=== PATIENT | male | born 1995 | race African-American/Black ===

== ENCOUNTER 2016-07-01 14:32 | Emergency (ER) | payer OTHER ==
--- NOTE | 2016-07-01 15:08 | ERRECORD ---
[facility] EMERGENCY RECORD HPI COUGH (15:01 JLOY) CHIEF COMPLAINT: Patient presents for evaluation of cough, productive of green sputum, Patient presents for evaluation of 1 week of cough and subjective chills. Aches all over. HISTORIAN: History provided by patient. LOCATION: Symptoms are generalized. TIME COURSE: Gradual onset of symptoms, There has been no change in the patient's symptoms over time, are constant. ASSOCIATED WITH: Associated with chest pain, intermittent, Associated with chills, No associated diarrhea, Associated with fever, subjective, Associated with nausea, intermittent, Associated with upper respiratory infection, Vomited x2 this am. EXACERBATED BY: Patient's condition exacerbated by nothing. RELIEVED BY: Patient's condition relieved by nothing. ROS (15:02 JLOY) CONSTITUTIONAL: Historian reports chills, reports fever. EYES: Historian denies eye pain, denies eye redness, denies eye discharge. ENT: Historian reports rhinorrhea, denies sore throat. CARDIOVASCULAR: substernal chest pain when coughing. RESPIRATORY: Historian reports cough, denies shortness of breath, reports sputum. green. GI: Historian denies abdominal pain, denies diarrhea, reports nausea, reports vomiting. GENITOURINARY MALE: Historian denies dysuria, denies hematuria. MUSCULOSKELETAL: Historian reports arthralgias, reports myalgias. NEUROLOGIC: Historian reports dizziness, reports headache. PAST MEDICAL HISTORY MEDICAL HISTORY: Flu vaccine not up to date, Tetanus immunization up to date, No past medical history. (14:44 LHAL) MALE SURGICAL HISTORY: Patient has no surgical history. (14:44 LHAL) PSYCHIATRIC HISTORY: Psychiatric history includes previous inpatient psychiatric admissions, Facility: [facility], Psychiatric history includes, bipolar disorder, Psychiatric history includes, ADHD , insomnia. (14:44 LHAL) SOCIAL HISTORY: Patient drinks socially, every week, Patient currently uses drugs, abuses marijuana, Patient has no smoking history. (14:44 LHAL) NOTES: Nursing records reviewed, Agree with nursing records. (15:03 JLOY) KNOWN ALLERGIES &a-1R&a+25V*p+0X*[id number]*c202B*c15G*c2P*p-0X&a-25V&a+1R Name: Kenroy Kate : 1995 M20 MedRec: [id number] AcctNum: [id number] Prepared: Adriane Jul 01, 2016 15:06 by Interface Page 1 of 3 pMD [facility] EMERGENCY RECORD ciprofloxacin (Unconfirmed) ciprofloxacin HCl (Unconfirmed) No Known Drug Allergies (Unconfirmed) Penicillins sulfamethoxazole (Unconfirmed) trimethoprim (Unconfirmed) CURRENT MEDICATIONS (14:43 LHAL) None VITAL SIGNS (14:38 LHAL) VITAL SIGNS: BP: 129/85 (Sitting), Pulse: 83 (Regular), Resp: 16 (Non-Labored), Temp: 100.0 (Oral), Pain: 5 (Constant), O2 sat: 97 on Room Air, Time: 07/01/2016 14:38. PHYSICAL EXAM (15:03 JLOY) CONSTITUTIONAL: Vital Signs Reviewed, Patient appears non toxic, Patient alert and oriented to person, place and time. EYES: Eye exam included findings of eyelids normal to inspection, Pupils equally round and reactive to light, Conjunctiva normal. ENT: Pharynx exam normal, Uvula exam normal, Tonsil exam normal, Mouth exam normal, mucous membranes moist. NECK: Neck exam included findings of normal range of motion, Trachea midline, no cervical adenopathy. RESPIRATORY CHEST: Respiratory exam included findings of no respiratory distress, Breath sounds clear, No wheezing, No rales, No rhonchi, Chest exam included findings of chest movement symmetrical. CARDIOVASCULAR: Cardiovascular exam included findings of heart rate regular rate and rhythm, Heart sounds normal. ABDOMEN MALE: Abdominal exam included findings of abdomen nontender, Bowel sounds normal. NEURO: [place] coma scale 15, Neuro exam findings include patient oriented to person, place and time, Speech normal. SKIN: Skin exam included findings of skin warm, dry, and normal in color, no rash. PSYCHIATRIC: Normal affect. PROBLEM LIST No recorded problems DIAGNOSIS (14:54 JLOY) FINAL: PRIMARY: Viral infection. PRESCRIPTION No recorded prescriptions DISPOSITION PATIENT: Disposition Type: Discharge, Disposition: *Discharge Home. (14:54 JLOY) Patient left the department. (15:01 LHAL) &a-1R&a+25V*p+0X*[id number]*c202B*c15G*c2P*p-0X&a-25V&a+1R Name: Kenroy Kate : 1995 M20 MedRec: [id number] AcctNum: [id number] Prepared: TueJul 01, 2016 15:06 by Interface Page 2 of 3 pMD [facility] EMERGENCY RECORD Pulido: TAWANNA=MD Black, Pradeep LHAL=DEWAYNE Purvis, Barbara &a-1R&a+25V*p+0X*[id number]*c202B*c15G*c2P*p-0X&a-25V&a+1R Name: Kenroy Kate : 1995 M20 MedRec: [id number] AcctNum: [id number] Prepared: TueJul 01, 2016 15:06 by Interface Page 3 of 3 pMD MTDD
--- NOTE | 2016-07-01 15:15 | PICIS ---
[facility] EMERGENCY RECORD TRIAGE (TueJul 01, 2016 14:43 LHAL) TRIAGE NOTES: COUGH, CONGESTION, FEVER X ONE WEEK. (TueJul 01, 2016 14:43 LHAL) PATIENT: NAME: Kenroy Kate, AGE: 20, GENDER: male, : Tue1995, TIME OF GREET: TueJul 01, 2016 14:33, PREFERRED LANGUAGE: Moh[place], ETHNICITY: Not or , ECODE BILLING MAP: [facility], SSN: [id number], Zip Code: [address], KG WEIGHT: 68.04, PHONE: , , , PERSON ID: [id number], PCP: NALLELY MONTALVO. (TueJul 01, 2016 14:43 LHAL) COMPLAINT: COUGH. (TueJul 01, 2016 14:43 LHAL) ADMISSION: URGENCY: 5 [employer], ADMISSION SOURCE: Home, TRANSPORT: CAR, BED: ER -05. (TueJul 01, 2016 14:43 LHAL) ASSESSMENT: Assessment: COUGH COLD CONGESTION X ONE WEEK, LOW GRADE FEVER, Symptoms began ONE WEEK AGO. (14:44 LHAL) PAIN: Patient complains of pain described as, aching, burning, on a scale 0-10 patient rates pain as 5, Location CHEST HURTS WHEN HE COUGHS, Pain is intermittent, No aggravating factors. (14:44 LHAL) IMMUNIZATIONS: Flu vaccine up to date, Tetanus immunization up to date, Pneumococcal vaccine up to date, Notes: KIRAN PARMAR MOTRIN AT 1230P TODAY. (14:44 LHAL) SIRS SCORING: Heart Rate 55-109 (0), Temp range 96.8-101.1 (0), respiratory rate 12-24 (0), Mental Status altered: no (0), Yes, Infection or Suspected Infection. (14:44 LHAL) TRIAGE SCREENING: Patient denies suicidal ideation, Patient denies presence of domestic violence. (14:44 LHAL) PROVIDERS: TRIAGE NURSE: Barbara Purvis RN. (Adriane Jul 01, 2016 14:43 LHAL) VITAL SIGNS: BP 129/85, (Sitting), Pulse 83, (Regular), Resp 16, (Non-Labored), Temp 100.0, (Oral), Pain 5, (Constant), O2 Sat 97, on Room Air, Time 07/01/2016 14:38. (14:38 LHAL) PREVIOUS VISIT ALLERGIES: ciprofloxacin HCl, Penicillins, sulfamethoxazole, trimethoprim. (TueJul 01, 2016 14:43 LHAL) ciprofloxacin HCl, Penicillins, sulfamethoxazole, trimethoprim. (14:44 LHAL) KNOWN ALLERGIES ciprofloxacin (Unconfirmed) ciprofloxacin HCl (Unconfirmed) No Known Drug Allergies (Unconfirmed) Penicillins sulfamethoxazole (Unconfirmed) trimethoprim (Unconfirmed) CURRENT MEDICATIONS (14:43 LHAL) None VITAL SIGNS (14:38 LHAL) VITAL SIGNS: BP: 129/85 (Sitting), Pulse: 83 (Regular), Resp: 16 &a-1R&a+25V*p+0X*[id number]*c202B*c15G*c2P*p-0X&a-25V&a+1R Name: Kenroy Kate : 1995 M20 MedRec: [id number] AcctNum: [id number] Prepared: TueJul 01, 2016 15:13 by Interface Page 1 of 5 pMD [facility] EMERGENCY RECORD (Non-Labored), Temp: 100.0 (Oral), Pain: 5 (Constant), O2 sat: 97 on Room Air, Time: 07/01/2016 14:38. NURSING ASSESSMENT: FOCUSED (14:43 LHAL) CONSTITUTIONAL: Patient arrives ambulatory, Gait steady, History obtained from patient, Patient appears comfortable, Patient cooperative, Patient alert, Oriented to person, place and time, Skin warm, Skin dry, Skin normal in color, Mucous membranes pink, Mucous membranes moist, Patient is well-groomed, Patient complains of COUGH X ONE WEEK. PAIN: aching pain, burning pain, CHEST HURTS WHEN HE COUGHS, Onset of pain ONE WEEK AGO, intermittent, on a scale 0-10 patient rates pain as 5, HAS TRIED TESSALON PERLES, ROBITUSSIN, MOTRIN, Pain exacerbated by nothing. EYES: Focused eye assessment finding include pupils equally round and reactive to light, Left pupil 3 mm in size, Right pupil 3 mm in size. NEURO: Focused neuro assessment findings include patient alert, cooperative, No facial droop noted, Speech coherent, no weakness, no numbness, No loss of consciousness. GCS: GCS Total: 15. RESPIRATORY: Focused respiratory assessment findings include breath sounds clear, to the left upper lobe, to the right upper lobe, to bilateral upper lobes, to the right middle lobe, to the left lower lobe, to the right lower lobe, to bilateral lower lobes. ABDOMEN: Focused abdominal assessment findings include abdomen soft, non tender, no diarrhea, no complaint of nausea, no vomiting, Bowel sounds present. GENITOURINARY: Focused genitourinary assessment not applicable. MUSCULOSKELETAL: Focused musculoskeletal assessment findings include normal range of motion. LACERATION: Focused laceration assessment not applicable. SAFETY: Side rails up, Cart/Stretcher in lowest position, Call light within reach, Hospital ID band on. NURSING PROCEDURE: DISCHARGE NOTE (14:57 LHAL) DISCHARGE: Patient discharged to home, ambulating without assistance, driving self, unaccompanied, Summary of Care printed/ provided, Patient requested and was provided an electronic copy of Discharge Instructions, Transition record given to patient, Discharge instructions given to patient, Simple or moderate discharge teaching performed, by Bertin PURVIS RN, Medication reconciliation form given, and reviewed with patient, Above person(s) verbalized understanding of discharge instructions and follow-up care, Notes: DC HOME STABLE, OCC DRY COUGH NO DISTRESS. BELONGINGS: Belongings and valuables with patient upon arrival to the Emergency Department include:. NURSING PROCEDURE: NURSE NOTES (14:47 LHAL) &a-1R&a+25V*p+0X*v4330Q*c202B*c15G*c2P*p-0X&a-25V&a+1R Name: Kenroy Kate : 1995 M20 MedRec: [id number] AcctNum: [id number] Prepared: Adriane Jul 01, 2016 15:13 by Interface Page 2 of 5 pMD [facility] EMERGENCY RECORD NURSES NOTES: Patient examined by physician. HPI COUGH (15:01 JL) CHIEF COMPLAINT: Patient presents for evaluation of cough, productive of green sputum, Patient presents for evaluation of 1 week of cough and subjective chills. Aches all over. HISTORIAN: History provided by patient. LOCATION: Symptoms are generalized. TIME COURSE: Gradual onset of symptoms, There has been no change in the patient's symptoms over time, are constant. ASSOCIATED WITH: Associated with chest pain, intermittent, Associated with chills, No associated diarrhea, Associated with fever, subjective, Associated with nausea, intermittent, Associated with upper respiratory infection, Vomited x2 this am. EXACERBATED BY: Patient's condition exacerbated by nothing. RELIEVED BY: Patient's condition relieved by nothing. ROS (15:02 [facility]) CONSTITUTIONAL: Historian reports chills, reports fever. EYES: Historian denies eye pain, denies eye redness, denies eye discharge. ENT: Historian reports rhinorrhea, denies sore throat. CARDIOVASCULAR: substernal chest pain when coughing. RESPIRATORY: Historian reports cough, denies shortness of breath, reports sputum. green. GI: Historian denies abdominal pain, denies diarrhea, reports nausea, reports vomiting. GENITOURINARY MALE: Historian denies dysuria, denies hematuria. MUSCULOSKELETAL: Historian reports arthralgias, reports myalgias. NEUROLOGIC: Historian reports dizziness, reports headache. PAST MEDICAL HISTORY MEDICAL HISTORY: Flu vaccine not up to date, Tetanus immunization up to date, No past medical history. (14:44 LHAL) MALE SURGICAL HISTORY: Patient has no surgical history. (14:44 LHAL) PSYCHIATRIC HISTORY: Psychiatric history includes previous inpatient psychiatric admissions, Facility: [facility], Psychiatric history includes, bipolar disorder, Psychiatric history includes, ADHD , insomnia. (14:44 LHAL) SOCIAL HISTORY: Patient drinks socially, every week, Patient currently uses drugs, abuses marijuana, Patient has no smoking history. (14:44 LHAL) NOTES: Nursing records reviewed, Agree with nursing records. (15:03 [facility]) &a-1R&a+25V*p+0X*z1445A*c202B*c15G*c2P*p-0X&a-25V&a+1R Name: Kenroy Kate : 1995 M20 MedRec: [id number] AcctNum: [id number] Prepared: [facility] Jul 01, 2016 15:13 by Interface Page 3 of 5 pMD [facility] EMERGENCY RECORD PHYSICAL EXAM (15:03 [facility]) CONSTITUTIONAL: Vital Signs Reviewed, Patient appears non toxic, Patient alert and oriented to person, place and time. EYES: Eye exam included findings of eyelids normal to inspection, Pupils equally round and reactive to light, Conjunctiva normal. ENT: Pharynx exam normal, Uvula exam normal, Tonsil exam normal, Mouth exam normal, mucous membranes moist. NECK: Neck exam included findings of normal range of motion, Trachea midline, no cervical adenopathy. RESPIRATORY CHEST: Respiratory exam included findings of no respiratory distress, Breath sounds clear, No wheezing, No rales, No rhonchi, Chest exam included findings of chest movement symmetrical. CARDIOVASCULAR: Cardiovascular exam included findings of heart rate regular rate and rhythm, Heart sounds normal. ABDOMEN MALE: Abdominal exam included findings of abdomen nontender, Bowel sounds normal. NEURO: [place] coma scale 15, Neuro exam findings include patient oriented to person, place and time, Speech normal. SKIN: Skin exam included findings of skin warm, dry, and normal in color, no rash. PSYCHIATRIC: Normal affect. EVENTS TRANSFER: Triage to Emergency Emergency Room -05. (14:43 LHAL) Removed from Emergency Emergency Room -05. (15:01 LHAL) PROBLEM LIST No recorded problems DIAGNOSIS (14:54 JL) FINAL: PRIMARY: Viral infection. DISPOSITION PATIENT: Disposition Type: Discharge, Disposition: *Discharge Home. (14:54 JLOY) Patient left the department. (15:01 LHAL) INSTRUCTION (14:55 JL) DISCHARGE: URI, VIRAL, NO ABX (ADULT). FOLLOWUP: Follow up with Primary Care Physician in 7-10 days. PRESCRIPTION No recorded prescriptions IMAGING (15:01 [facility]) *DISCHARGE INSTRUCTIONS RECEIPT: Image captured from scanner. *SUPPLY CHARGE SHEET: Image captured from scanner. ADMIN &a-1R&a+25V*p+0X*g5431D*c202B*c15G*c2P*p-0X&a-25V&a+1R Name: Kenroy Kate : 1995 M20 MedRec: [id number] AcctNum: [id number] Prepared: [facility] Jul 01, 2016 15:13 by Interface Page 4 of 5 D [facility] EMERGENCY RECORD DIGITAL SIGNATURE: DEWAYNE Purvis, Barbara. (15:01 [facility]) MD Cleaning Joshua. (15:03 TAWANNA) Pulido: TAWANNA=MD Cleaning Joshua LHAL=DEWAYNE Purvis, Barbara &a-1R&a+25V*p+0X*v6254K*c202B*c15G*c2P*p-0X&a-25V&a+1R Name: Kenroy Kate Neto : 1995 M20 MedRec: [id number] AcctNum: [id number] Prepared: Adriane Jul 01, 2016 15:13 by Interface Page 5 of 5 pMD MTDD
== END 2016-07-01 14:57 | disposition home or self-care (01) ==
LOC: NAV ERS 14:32
DX: B34.9 Viral infection, unspecified (principal); F90.9 Attention-deficit hyperactivity disorder, unspecified type; F31.9 Bipolar disorder, unspecified; G47.00 Insomnia, unspecified
CPT/HCPCS: 99283

== ENCOUNTER 2016-10-26 00:34 | Emergency (ER) | payer OTHER ==
[2016-10-26] MEDS ORDERED: predniSONE 20 MG TAB ONE (01:00)
[2016-10-26] MEDS ORDERED: Azithromycin 500 MG VIAL ONE (01:00)
[2016-10-26] MEDS ORDERED: Azithromycin 250 MG TAB ONE (01:01)
== END 2016-10-26 01:19 | disposition home or self-care (01) ==
LOC: NAV ERS 00:34
DX: J02.0 Streptococcal pharyngitis (principal); F31.9 Bipolar disorder, unspecified; F90.9 Attention-deficit hyperactivity disorder, unspecified type; F17.210 Nicotine dependence, cigarettes, uncomplicated
CPT/HCPCS: 99283; J0456; J7506

== ENCOUNTER 2016-10-26 17:58 | Emergency (ER) | payer OTHER ==
[2016-10-26 18:38] LABS: #Lymphocytes 0.5 thou/uL (1.20-3.40); #Monocytes 0.3 thou/uL (0.11-0.59); #Neutrophils 8.3 thou/uL (1.40-6.50); %Basophils 0.3 % (0.0-1.0); %Lymphocytes 5.6 % (28.0-48.0); %Monocytes 3.3 % (0.0-4.0); %Neutrophils 90.7 % (31.0-61.0); Hemoglobin 15.5 g/dL (14.0-18.0); Mean Corpuscular Hemoglobin 28.3 pg (25.0-35.0); Mean Corpuscular Volume 85.7 fl (77.0-87.0); Mean Platelet Volume 7.8 fL (7.4-10.4); Platelet Count 247 thou/uL (130-400); RBC Distribution Width 11.3 % (11.5-14.5); Red Blood Cell (RBC) Count 5.46 mill/uL (4.00-5.20); White Blood Cell (WBC) Count 9.2 thou/uL (4.8-10.8)
[2016-10-26 18:43] LABS: Bilirubin Negative (Negative); Blood, Urine Negative (Negative); Clarity Clear (Clear); Glucose, Urine (Dipstick) Negative (Negative); Leukocyte Negative (Negative); Nitrite Negative (Negative); Protein, Urine (Dipstick) Trace mg/dL (Neg-Trace); Urobilinogen 0.2 mg/dL (0.2-1.0)
[2016-10-26 18:44] LABS: Specific Gravity, Urine 1.032 (1.002-1.036)
[2016-10-26 18:51] LABS: Acetaminophen Less than 6.0 mcg/mL (10.0-30.0); Alcohol Less than 10 mg/dL (Less than 10); Salicylate Less than 8.0 mg/dL (15.0-30.0)
[2016-10-26 18:53] LABS: ALT (SGPT) 15 U/L (8-55); AST (SGOT) 19 U/L (5-34); Albumin 4.2 g/dL (3.5-5.0); Alkaline Phosphatase 77 U/L (Less than 750); Anion Gap 14 mmol/L (10-20); BUN (Urea Nitrogen) 23 mg/dL (8.9-20.6); Bilirubin, Total 0.2 mg/dL (0.2-1.2); CK (CPK) 206 U/L (30-200); Calc. Creatinine Clearance 0 mL/min (70-130); Calcium 9.9 mg/dL (7.8-10.44); Carbon Dioxide 25 mmol/L (22-29); Chloride 105 mmol/L (98-107); Estimated GFR-MDRD Greater than 90; Globulin 3.4 g/dL (2.4-3.5); Glucose 89 mg/dL (70-105); Potassium 4.2 mmol/L (3.5-5.1); Protein, Total 7.6 g/dL (6.0-8.3); Sodium 140 mmol/L (136-145)
[2016-10-26 18:58] LABS: Amphetamine Not Detected (NotDetected); Barbiturates Screen Not Detected (NotDetected); Benzodiazepine Screen Not Detected (NotDetected); Cocaine Metabolite Screen Not Detected (NotDetected); Medtox Control Line Valid? VALID (VALID); Methadone Not Detected (NotDetected); Methamphetamine Not Detected (NotDetected); Opiate Screen Not Detected (NotDetected); Oxycodone Screen Not Detected (NotDetected); Phencyclidine (PCP) Not Detected (NotDetected); THC/Cannabinoid Screen Detected (NotDetected); Tricyclic Screen Not Detected (NotDetected)
[2016-10-26] MEDS ORDERED: Lorazepam 1 MG TAB ONE (19:32)
== END 2016-10-27 00:26 ==
LOC: NAV ERS 17:58
DX: F31.9 Bipolar disorder, unspecified (principal); F90.9 Attention-deficit hyperactivity disorder, unspecified type; F17.210 Nicotine dependence, cigarettes, uncomplicated; Z79.899 Other long term (current) drug therapy
CPT/HCPCS: 80053; 80306; 80307; 81003; 82550; 84443; 85025; 99285; J0456; J7506

== ENCOUNTER 2016-11-19 15:27 | Emergency (ER) | payer OTHER ==
[2016-11-19 16:30] LABS: #Basophils 0.1 thou/uL (0.0-0.2); #Eosinphils 0.1 thou/uL (0.0-0.7); #Lymphocytes 1.3 thou/uL (1.20-3.40); #Monocytes 0.7 thou/uL (0.11-0.59); #Neutrophils 4.6 thou/uL (1.40-6.50); %Basophils 1.1 % (0.0-1.0); %Eosinophils 1.2 % (0.0-10.0); %Lymphocytes 19.1 % (28.0-48.0); %Monocytes 10.4 % (0.0-4.0); %Neutrophils 68.3 % (31.0-61.0); Hemoglobin 15.3 g/dL (14.0-18.0); Mean Corpuscular HGB CONC 33.3 g/dL (32.0-36.0); Mean Corpuscular Hemoglobin 28.5 pg (25.0-35.0); Mean Corpuscular Volume 85.8 fl (77.0-87.0); Mean Platelet Volume 7.6 fL (7.4-10.4); Platelet Count 254 thou/uL (130-400); RBC Distribution Width 12.2 % (11.5-14.5); Red Blood Cell (RBC) Count 5.36 mill/uL (4.00-5.20); White Blood Cell (WBC) Count 6.7 thou/uL (4.8-10.8)
[2016-11-19 16:43] LABS: Acetaminophen Less than 6.0 mcg/mL (10.0-30.0); Alcohol Less than 10 mg/dL (Less than 10); Salicylate Less than 8.0 mg/dL (15.0-30.0)
[2016-11-19 16:45] LABS: Amphetamine Not Detected (NotDetected); Barbiturates Screen Not Detected (NotDetected); Benzodiazepine Screen Not Detected (NotDetected); Cocaine Metabolite Screen Detected (NotDetected); Medtox Control Line Valid? VALID (VALID); Methadone Not Detected (NotDetected); Methamphetamine Detected (NotDetected); Opiate Screen Not Detected (NotDetected); Oxycodone Screen Not Detected (NotDetected); Phencyclidine (PCP) Not Detected (NotDetected); THC/Cannabinoid Screen Detected (NotDetected); Tricyclic Screen Not Detected (NotDetected)
[2016-11-19 16:51] LABS: ALT (SGPT) 25 U/L (8-55); AST (SGOT) 21 U/L (5-34); Albumin 4.1 g/dL (3.5-5.0); Alcohol Less than 10 mg/dL (Less than 10); Alkaline Phosphatase 66 U/L (Less than 750); Anion Gap 16 mmol/L (10-20); BUN (Urea Nitrogen) 16 mg/dL (8.9-20.6); Bilirubin, Total 0.4 mg/dL (0.2-1.2); Calc. Creatinine Clearance 0 mL/min (70-130); Calcium 9.7 mg/dL (7.8-10.44); Carbon Dioxide 23 mmol/L (22-29); Chloride 103 mmol/L (98-107); Estimated GFR-MDRD Greater than 90; Globulin 3.4 g/dL (2.4-3.5); Glucose 89 mg/dL (70-105); Potassium 3.9 mmol/L (3.5-5.1); Protein, Total 7.5 g/dL (6.0-8.3); Sodium 138 mmol/L (136-145)
== END 2016-11-20 08:46 ==
LOC: NAV ERS 15:27
DX: R45.1 Restlessness and agitation (principal); F19.10 Other psychoactive substance abuse, uncomplicated; F90.9 Attention-deficit hyperactivity disorder, unspecified type; F17.210 Nicotine dependence, cigarettes, uncomplicated; F31.9 Bipolar disorder, unspecified
CPT/HCPCS: 80053; 80306; 80307; 85025; 93005

== ENCOUNTER 2017-06-24 12:59 | Emergency (ER) | payer OTHER | END 2017-06-24 14:24 | disposition home or self-care (01) | LOC: NAV ERS 12:59 | DX: A08.4 Viral intestinal infection, unspecified (principal); F31.9 Bipolar disorder, unspecified; F90.9 Attention-deficit hyperactivity disorder, unspecified type; F17.210 Nicotine dependence, cigarettes, uncomplicated | CPT/HCPCS: 99283 ==

== ENCOUNTER 2018-07-16 17:22 | Emergency (ER) | payer OTHER ==
[2018-07-16] MEDS ORDERED: Sodium Chloride 0.9% 1,000 ML ONE ×2 (17:39→18:38)
[2018-07-16 18:05] LABS: #Basophils 0.1 thou/uL (0.0-0.2); #Eosinphils 0.1 thou/uL (0.0-0.7); #Lymphocytes 1.6 thou/uL (1.20-3.40); #Monocytes 0.7 thou/uL (0.11-0.59); #Neutrophils 6.1 thou/uL (1.40-6.50); %Basophils 0.7 % (0.0-1.0); %Eosinophils 0.9 % (0.0-10.0); %Lymphocytes 18.9 % (21.0-51.0); %Monocytes 7.9 % (0.0-10.0); %Neutrophils 71.5 % (42.0-75.0); Hemoglobin 14.4 g/dL (14.0-18.0); Mean Corpuscular HGB CONC 33.1 g/dL (32.0-36.0); Mean Corpuscular Hemoglobin 28.9 pg (27.0-31.0); Mean Corpuscular Volume 87.3 fL (78.0-98.0); Mean Platelet Volume 7.3 fL (7.4-10.4); Platelet Count 338 thou/uL (130-400); RBC Distribution Width 11.5 % (11.5-14.5); Red Blood Cell (RBC) Count 4.97 mill/uL (4.70-6.10); White Blood Cell (WBC) Count 8.5 thou/uL (4.8-10.8)
[2018-07-16 18:15] LABS: ALT (SGPT) 54 U/L (8-55); AST (SGOT) 142 U/L (5-34); Acetaminophen Less than 6.0 mcg/mL (10.0-30.0); Alcohol Less than 10 mg/dL (Less than 10); Alkaline Phosphatase 73 U/L (40-150); Anion Gap 13 mmol/L (10-20); BUN (Urea Nitrogen) 20 mg/dL (8.9-20.6); Bilirubin, Total 0.3 mg/dL (0.2-1.2); Calc. Creatinine Clearance 0 mL/min (70-130); Calcium 9.5 mg/dL (7.8-10.44); Carbon Dioxide 21 mmol/L (22-29); Chloride 108 mmol/L (98-107); Estimated GFR-MDRD Greater than 90; Globulin 2.7 g/dL (2.4-3.5); Glucose 108 mg/dL (70-105); Potassium 3.8 mmol/L (3.5-5.1); Protein, Total 6.7 g/dL (6.0-8.3); Salicylate Less than 8.0 mg/dL (15.0-30.0); Sodium 138 mmol/L (136-145)
[2018-07-16 18:53] LABS: CK (CPK) 4220 U/L (30-200)
[2018-07-16] MEDS ORDERED: Ziprasidone 20 MG VIAL ONE (18:53)
[2018-07-16] MEDS ORDERED: Sterile Water 10 ML ONE (18:56)
[2018-07-16 19:30] LABS: Bilirubin Negative (Negative); Blood, Urine Negative (Negative); Clarity Clear (Clear); Glucose, Urine (Dipstick) Negative (Negative); Leukocyte Negative (Negative); Nitrite Negative (Negative); Protein, Urine (Dipstick) Negative (Neg-Trace); Specific Gravity, Urine 1.015 (1.005-1.030); Urobilinogen 0.2 mg/dL (0.2-1.0)
[2018-07-16 19:55] LABS: Amphetamine Detected (NotDetected); Barbiturates Screen Not Detected (NotDetected); Benzodiazepine Screen Not Detected (NotDetected); Cocaine Metabolite Screen Not Detected (NotDetected); Medtox Control Line Valid? VALID (VALID); Methadone Not Detected (NotDetected); Methamphetamine Detected (NotDetected); Opiate Screen Not Detected (NotDetected); Oxycodone Screen Not Detected (NotDetected); Phencyclidine (PCP) Not Detected (NotDetected); THC/Cannabinoid Screen Detected (NotDetected); Tricyclic Screen Not Detected (NotDetected)
== END 2018-07-16 19:20 | disposition short-term general hospital (02) ==
LOC: NAV ERS 17:22
DX: M62.82 Rhabdomyolysis (principal); R45.851 Suicidal ideations; R44.1 Visual hallucinations; B20 Human immunodeficiency virus [HIV] disease; F31.9 Bipolar disorder, unspecified
CPT/HCPCS: 80053; 80306; 80307; 81003; 82550; 84443; 85025; 96360; 96361; 96372; A4216; J3486; J7050

== ENCOUNTER 2019-05-21 13:42 | Emergency (ER) | payer OTHER ==
[2019-05-21] MEDS ORDERED: Proparacaine 0.5% Opth 15 ML BOT ONE (13:49)
[2019-05-21] MEDS ORDERED: Fluorescein Opthalmic Strip ONE (13:49)
== END 2019-05-21 14:22 | disposition home or self-care (01) ==
LOC: NAV ERS 13:42
DX: H10.32 Unspecified acute conjunctivitis, left eye (principal); J06.9 Acute upper respiratory infection, unspecified; B20 Human immunodeficiency virus [HIV] disease; F31.9 Bipolar disorder, unspecified; F90.9 Attention-deficit hyperactivity disorder, unspecified type; G47.00 Insomnia, unspecified; F17.210 Nicotine dependence, cigarettes, uncomplicated; Z71.6 Tobacco abuse counseling
CPT/HCPCS: 99406

== ENCOUNTER 2019-06-27 17:27 | Emergency (ER) | payer OTHER ==
--- NOTE | 2019-06-27 18:48 | RAD ---
PA AND LATERAL CHEST: 06/27/19 HISTORY: Cough. COMPARISON: 07/06/18 study. Heart size and mediastinum are within normal limits. The lungs are clear of infiltrates. Scoliotic ch anges of the spine is again demonstrated. IMPRESSION: No active intrathoracic disease. POS: [facility]
== END 2019-06-27 18:55 | disposition home or self-care (01) ==
LOC: NAV ERS 17:27
DX: J20.9 Acute bronchitis, unspecified (principal); B20 Human immunodeficiency virus [HIV] disease; F90.9 Attention-deficit hyperactivity disorder, unspecified type; G47.00 Insomnia, unspecified; F31.9 Bipolar disorder, unspecified; F17.210 Nicotine dependence, cigarettes, uncomplicated; Z79.899 Other long term (current) drug therapy
CPT/HCPCS: 71046; 87804

== ENCOUNTER 2020-02-03 16:31 | Emergency (ER) | payer OTHER ==
[2020-02-03 17:18] LABS: #Lymphocytes 1.5 thou/uL (1.20-3.40); #Monocytes 0.5 thou/uL (0.11-0.59); #Neutrophils 3.8 thou/uL (1.40-6.50); %Basophils 0.5 % (0.0-1.0); %Eosinophils 0.7 % (0.0-10.0); %Lymphocytes 25.3 % (21.0-51.0); %Monocytes 8.2 % (0.0-10.0); %Neutrophils 65.3 % (42.0-75.0); Hemoglobin 14.5 g/dL (14.0-18.0); Mean Corpuscular HGB CONC 32.5 g/dL (32.0-36.0); Mean Corpuscular Hemoglobin 29.2 pg (27.0-31.0); Mean Corpuscular Volume 89.8 fL (78.0-98.0); Mean Platelet Volume 8.5 fL (7.4-10.4); Platelet Count 231 thou/uL (130-400); RBC Distribution Width 12.5 % (11.5-14.5); Red Blood Cell (RBC) Count 4.97 mill/uL (4.70-6.10); White Blood Cell (WBC) Count 5.8 thou/uL (4.8-10.8)
[2020-02-03 17:42] LABS: ALT (SGPT) 17 U/L (8-55); AST (SGOT) 13 U/L (5-34); Acetaminophen Less than 6.0 mcg/mL (10.0-30.0); Alcohol Less than 10 mg/dL (Less than 10); Alkaline Phosphatase 57 U/L (40-110); Anion Gap 12 mmol/L (10-20); BUN (Urea Nitrogen) 6 mg/dL (8.9-20.6); Bilirubin, Total 0.3 mg/dL (0.2-1.2); CK (CPK) 97 U/L (30-200); Calc. Creatinine Clearance 0 mL/min (70-130); Calcium 8.9 mg/dL (7.8-10.44); Carbon Dioxide 26 mmol/L (22-29); Chloride 106 mmol/L (98-107); Estimated GFR-MDRD Greater than 90; Globulin 2.5 g/dL (2.4-3.5); Glucose 92 mg/dL (70-105); Potassium 3.5 mmol/L (3.5-5.1); Protein, Total 6.5 g/dL (6.0-8.3); Salicylate Less than 8.0 mg/dL (15.0-30.0); Sodium 140 mmol/L (136-145)
[2020-02-03 18:12] LABS: Bilirubin Negative (Negative); Blood, Urine Negative (Negative); Clarity Clear (Clear); Glucose, Urine (Dipstick) Negative (Negative); Ketone, Urine Negative (Negative); Leukocyte Negative (Negative); Nitrite Negative (Negative); Protein, Urine (Dipstick) Negative (Neg-Trace); Urobilinogen 0.2 mg/dL (Less than 2)
[2020-02-03 18:32] LABS: Amphetamine Not Detected (NotDetected); Barbiturates Screen Not Detected (NotDetected); Benzodiazepine Screen Detected (NotDetected); Cocaine Metabolite Screen Not Detected (NotDetected); Medtox Control Line Valid? VALID (VALID); Methadone Not Detected (NotDetected); Methamphetamine Not Detected (NotDetected); Opiate Screen Not Detected (NotDetected); Oxycodone Screen Not Detected (NotDetected); Phencyclidine (PCP) Not Detected (NotDetected); THC/Cannabinoid Screen Detected (NotDetected); Tricyclic Screen Not Detected (NotDetected)
[2020-02-03] MEDS ORDERED: Lorazepam 2 MG/ML VIAL ONE (19:12)
== END 2020-02-04 00:10 ==
LOC: NAV ERS 16:31
DX: R45.851 Suicidal ideations (principal); B20 Human immunodeficiency virus [HIV] disease; F41.9 Anxiety disorder, unspecified; F31.9 Bipolar disorder, unspecified; F90.9 Attention-deficit hyperactivity disorder, unspecified type; F17.210 Nicotine dependence, cigarettes, uncomplicated; Z79.899 Other long term (current) drug therapy
CPT/HCPCS: 36415; 80053; 80306; 80307; 81003; 82550; 84443; 85025; 96372; 99285; J2060

== ENCOUNTER 2021-04-11 18:46 | Emergency (ER) | payer OTHER ==
[2021-04-11 19:24] LABS: #Basophils 0.1 thou/uL (0.0-0.2); #Lymphocytes 1.3 thou/uL (1.20-3.40); #Monocytes 0.8 thou/uL (0.11-0.59); #Neutrophils 7.6 thou/uL (1.40-6.50); %Basophils 0.6 % (0.0-1.0); %Eosinophils 0.2 % (0.0-10.0); %Monocytes 8.2 % (0.0-10.0); Hemoglobin 16.9 g/dL (14.0-18.0); Mean Corpuscular HGB CONC 33.2 g/dL (32.0-36.0); Mean Corpuscular Hemoglobin 29.8 pg (27.0-31.0); Mean Corpuscular Volume 89.7 fL (78.0-98.0); Mean Platelet Volume 7.5 fL (7.4-10.4); Platelet Count 325 thou/uL (130-400); RBC Distribution Width 11.2 % (11.5-14.5); Red Blood Cell (RBC) Count 5.67 mill/uL (4.70-6.10); White Blood Cell (WBC) Count 9.7 thou/uL (4.8-10.8)
[2021-04-11 19:31] LABS: Amphetamine Detected (NotDetected); Barbiturates Screen Not Detected (NotDetected); Benzodiazepine Screen Detected (NotDetected); Cocaine Metabolite Screen Not Detected (NotDetected); Medtox Control Line Valid? VALID (VALID); Methadone Not Detected (NotDetected); Methamphetamine Detected (NotDetected); Opiate Screen Not Detected (NotDetected); Oxycodone Screen Not Detected (NotDetected); Phencyclidine (PCP) Not Detected (NotDetected); THC/Cannabinoid Screen Not Detected (NotDetected); Tricyclic Screen Not Detected (NotDetected)
[2021-04-11] MEDS ORDERED: Sodium Chloride 0.9% 1,000 ML ONE (19:36)
[2021-04-11 19:37] LABS: ALT (SGPT) 25 U/L (8-55); AST (SGOT) 24 U/L (5-34); Albumin 4.4 g/dL (3.5-5.0); Alkaline Phosphatase 63 U/L (40-110); Anion Gap 15 mmol/L (10-20); BUN (Urea Nitrogen) 10 mg/dL (8.9-20.6); Bilirubin, Total 0.5 mg/dL (0.2-1.2); Calc. Creatinine Clearance 0 mL/min (70-130); Carbon Dioxide 24 mmol/L (22-29); Chloride 108 mmol/L (98-107); Globulin 3.6 g/dL (2.4-3.5); Glucose 98 mg/dL (70-105); Potassium 4.2 mmol/L (3.5-5.1); Sodium 143 mmol/L (136-145)
[2021-04-11 19:40] LABS: Acetaminophen Less than 6.0 mcg/mL (10.0-30.0); Alcohol Less than 10 mg/dL (Less than 10); Salicylate Less than 8.0 mg/dL (15.0-30.0)
[2021-04-11] MEDS ORDERED: Lorazepam 2 MG/ML VIAL ONE (22:04)
[2021-04-12] MEDS ORDERED: Lorazepam 2 MG/ML VIAL ONE ×2 (05:06→08:43)
[2021-04-12] MEDS ORDERED: Nicotine 21 MG PATCH ONE (10:25)
== END 2021-04-12 13:47 ==
LOC: NAV ERS 18:46
DX: F29 Unspecified psychosis not due to a substance or known physiological condition (principal); R45.851 Suicidal ideations; R45.850 Homicidal ideations; Z21 Asymptomatic human immunodeficiency virus [HIV] infection status; F17.290 Nicotine dependence, other tobacco product, uncomplicated; Z79.899 Other long term (current) drug therapy
CPT/HCPCS: 80053; 80306; 80307; 84443; 85025; 96374; 96376; J2060; J7050